=== PATIENT | male | born 1990 | race Caucasian/White ===

== ENCOUNTER 2023-03-30 12:59 | Emergency (ER) | payer OTHER ==
[2023-03-30] MEDS ORDERED: Lidocaine 1% 5 ML VIAL INJECT ONE (13:57)
[2023-03-30] MEDS ORDERED: Bupivacaine 0.5% 10 ML SDV INJECT ONE (13:57)
[2023-03-30] MEDS ORDERED: traMADol 50 MG Tab PO ONE (13:58)
[2023-03-30] MEDS ORDERED: Diphtheria,Pertussis(Acell),Tetanus Vaccine 0.5 ML Syringe IM ONE (13:58)
[2023-03-30] MEDS ORDERED: Acetaminophen 325 MG Tab PO ONE (13:58)
[2023-03-30] MEDS ORDERED: Bacitracin/Neomycin/Polymyxin B Oint 0.9 GM U/D Packet TOP ONE (14:54)
== END 2023-03-30 15:30 | disposition home or self-care (01) ==
LOC: LL.ED 12:59
DX: S61.210A Laceration without foreign body of right index finger without damage to nail, initial encounter (principal); Z87.891 Personal history of nicotine dependence; Z23 Encounter for immunization; W26.9XXA Contact with unspecified sharp object(s), initial encounter
CPT/HCPCS: 12002; 73140-RT; 90715; 99283; A9270-GY; J3490